=== PATIENT | female | born 1990 | race Caucasian/White ===

== ENCOUNTER 2017-10-21 23:03 | Emergency (ER) | payer BC, OTHER ==
[2017-10-21 23:16] VITALS: O2SAT 98
[2017-10-21] MEDS ORDERED: CORTISPORIN EAR DROPS Solution 1OML OT ONE (23:23)
[2017-10-21] MEDS ORDERED: CLEOCIN 150 MG CAPSULE PO ONE (23:24)
[2017-10-21] MEDS ORDERED: CORTISPORIN EAR DROPS 10 ML SUSPENSION OT ONE (23:29)
[2017-10-21] MEDS ORDERED: CLEOCIN 150 MG CAPSULE ONE (23:29)
--- NOTE | 2017-10-21 23:29 | ERPHSYRPT ---
- History of Present Illness Time Seen by Provider: 10/21/17 23:25 Source: patient Exam Limitations: no limitations Physician History: Pain in left ear for 2-3 days, got worse today, Timing/Duration: gradual onset Severity: moderate ENT Location: ear (L) Prearrival Treatment: no prearrival treatment Associated Symptoms: ear pain (L) Allergies/Adverse Reactions: Sulfa (Sulfonamide Antibiotics) [Sulfa(Sulfonamide Antibiotics)] Allergy (Mild, Verified 04/11/15 02:06) Hives fenofibrate nanocrystallized [From Tricor] Allergy (Verified 04/11/15 02:06) fenofibrate,micronized [From Tricor] Allergy (Verified 04/11/15 02:06) Home Medications: No Reportable Medications [No Reported Medications] 10/21/17 [History] Hx Tetanus, Diphtheria Vaccination/Date Given: Yes (1-2 years ago) Hx Influenza Vaccination/Date Given: No Hx Pneumococcal Vaccination/Date Given: No - Review of Systems Constitutional: No Symptoms Eyes: No Symptoms Ears, Nose, & Throat: Ear Pain, Ear Discharge, Hearing Changes Respiratory: No Symptoms Cardiac: No Symptoms Abdominal/Gastrointestinal: No Symptoms Genitourinary Symptoms: No Symptoms Musculoskeletal: No Symptoms - Past Medical History Pertinent Past Medical History: Yes Neurological History: Migraines ENT History: No Pertinent History Cardiac History: High Cholesterol Respiratory History: No Pertinent History Endocrine Medical History: No Pertinent History Musculoskeletal History: No Pertinent History GI Medical History: GERD History: No Pertinent History Psycho-Social History: Anxiety, Bipolar, Depression, Panic Disorder Female Reproductive Disorders: No Pertinent History Other Medical History: PT STATES THAT HER TRIGLYCERIDES ARE HIGH. PT CANNOT RECALL MEDICATION SHE IS TAKING FOR THAT - Past Surgical History Past Surgical History: Yes Neuro Surgical History: No Pertinent History Cardiac: No Pertinent History Respiratory: No Pertinent History Gastrointestinal: No Pertinent History Genitourinary: No Pertinent History Musculoskeletal: Other Female Surgical History: Section, Tubal Ligation Other Surgical History: TONSILS. WISDOM TEETH. 2 CARPAL TUNNEL SURGERIES - Social History Smoking Status: Current every day smoker How long have you smoked: 4 Exposure to second hand smoke: Yes Drug Use: none Patient Lives Alone: No - Nursing Vital Signs Nursing Vital Signs: Initial Vital Signs Temperature 98 F 10/21/17 23:15 Pulse Rate 87 10/21/17 23:15 Respiratory Rate 18 10/21/17 23:15 Blood Pressure 137/71 10/21/17 23:15 O2 Sat by Pulse Oximetry 98 10/21/17 23:15 Pain Scale Pain Intensity 9 - Physical Exam General Appearance: no apparent distress Eye Exam: bilateral eye: normal inspection, PERRL, EOMI Ear Exam: bilateral ear: auricle normal, TM red, TM bulging Nasal Exam: normal inspection Throat Exam: normal Neck Exam: normal inspection SpO2: 98 Oxygen Delivery: Room Air - Course Nursing assessment & vital signs reviewed: Yes Ordered Tests: Medication Summary Generic Name Dose Route Start Last Admin Trade Name Femi PRN Reason Stop Dose Admin Clindamycin HCl 300 mg 10/21/17 23:24 Cleocin 150 Mg Capsule PO 10/21/17 23:25 STAT ONE Neomycin/Polymyxin/Hydrocortisone 10 ml 10/21/17 23:23 Cortisporin Ear Drops Solution 1oml OT 10/21/17 23:24 STAT ONE - Progress Progress: unchanged, pain not gone completely Counseled pt/family regarding: diagnosis, need for follow-up - Departure Time of Disposition: 23:28 Departure Disposition: Home Clinical Impression: Otitis media due to Streptococcus pneumoniae Condition: Stable Critical Care Time: No Referrals: KARLI SPENCER NP [Primary Care Provider] - Instructions: Ear Pain, Otitis Media (Middle Ear Infection) Additional Instructions: EARACHE 1. If antibiotics are prescribed, take them as directed until gone. 2. Decongestants may be useful. 3. Avoid inserting objects into the ear, such as Q-tips. 4. Acetaminophen or Ibuprofen as directed may help reduce any temperature and help with any associated pain. 5. Contact your child's family physician if there is no improvement in the child's condition within 48 hours. Please follow the instructions given to you. Please take your medication as prescribed if given. If symptoms recur or get worse, come back to the emergency room if you cannot reach your primary care physician, or call your primary care physician for an appointment. Again if your symptoms get worse, come back to the emergency room. Thanks for visiting emergency room, and let us take care of you. Prescriptions: Clindamycin HCl 300 mg PO QID #30 capsule
[2017-10-22] MEDS ORDERED: TORAdol 30 mg Injection IM ONE
[2017-10-22] MEDS ORDERED: TORAdol 30 mg Injection ONE (00:03)
[2017-10-22] MEDS ORDERED: CLEOCIN 150 MG CAPSULE ONE (00:31)
[2017-10-22 00:53] VITALS: BP 118/73; PULSE 67
[2017-10-22] MEDS ORDERED: CLEOCIN 150 MG CAPSULE PO SCH (10:00)
== END 2017-10-22 00:52 | disposition home or self-care (01) ==
LOC: ED 23:03
DX: H66.90 Otitis media, unspecified, unspecified ear (principal); J13 Pneumonia due to Streptococcus pneumoniae
CPT/HCPCS: 96372; 99284; J1885; A9270-GY

== ENCOUNTER 2023-09-06 21:18 | Emergency (ER) | payer SELFPAY ==
[2023-09-06 21:38] VITALS: RESP 18; TEMP 98.2; O2SAT 98
[2023-09-06 21:59] LABS: Absolute Neutrophil Ct (ANC) 2.42 x10^3/uL (1.4-6.9); BASOPHIL % 0.8 % (0.0-0.4); Basophil (Absolute #) 0.04 x10^3/uL (0-0.4); Eosinophil % 4.9 % (0.00-5.0); Eosinophil (Absolute #) 0.24 x10^3/uL (0-0.5); Hematocrit 39.4 % (35-47); Hemoglobin 12.5 g/dL (12.0-16.0); IMMATURE GRAN # 0.01 x10^3u/L (0.00-0.03); IMMATURE GRAN % 0.2 % (0.00-0.4); Lymphocyte (Absolute #) 1.91 x10^3/uL (1.0-4.6); Lymphocytes % 38.9 % (24.0-44.0); Mean Cell Volume 81.4 fL (78-100); Mean Corpuscular Hemoglobin 25.8 pg (26-32); Mean Corpuscular Hgb Concent. 31.7 g/dL (32-36); Mean Platelet Volume 9.9 fL (7.5-11.0); Monocyte (Absolute #) 0.29 x10^3/uL (0.0-1.3); Monocytes % 5.9 % (0.0-12.0); Neutrophil % 49.3 % (36.0-66.0); Platelet Count 190 x10^3/uL (150-450); Red Blood Count 4.84 x10^6/uL (4.1-5.4); Red Cell Distribution Width 15.6 % (11.5-14.0); White Blood Count 4.9 x10^3/uL (4.0-10.5)
[2023-09-06 22:18] LABS: ALBUMIN 4.4 g/dL (3.5-5.0); ANION GAP 14.9 MEQ/L (5-15); BILIRUBIN,TOTAL 0.3 mg/dL (0.2-1.3); Calcium 9.1 mg/dL (8.4-10.2); Creatinine 1 0.59 mg/dL (0.52-1.04); EST GLOMERULAR FILTRATION RATE 123.5 ML/MIN; HCG SERUM TEST NEGATIVE (NEGATIVE); Potassium 3.6 mmol/L (3.5-5.1); Total Protein 7.4 g/dL (6.3-8.2)
--- NOTE | 2023-09-06 22:33 | ERPHSYRPT ---
- History of Present Illness Time Seen by Provider: 09/06/23 21:35 Source: patient Exam Limitations: no limitations Patient Subjective Stated Complaint: pt states that she had a menstral cycle on 08/25 for a few days. pt states that it had stop and started couple days. pt states that tonight she felt a gush and a clump came out. Triage Nursing Assessment: pt ambulated into the er; pt is axo x4; c/o abnormal menstral cycle; pt states 7/10 pain to lower abd; active bowel sounds in all quads; skin PDW; no respiratory distress present; vitals wnl Physician History: Patient presents as a 4 para 3 AB 1 who has had some cramping. She started bleeding on 1027 thinking it was her menses which was a week late. A fter 4 days she stopped and continued no bleeding for 4 days and then started bleeding again and then subsequently stopped again and today a large clump of something fell out. She is complaining of some cramping her bleeding has slowed down. She has seen While he apparently but has not yet had an ultrasound. Allergies/Adverse Reactions: Sulfa (Sulfonamide Antibiotics) [Sulfa(Sulfonamide Antibiotics)] Allergy (Mild, Verified 09/06/23 21:26) Hives Cephalosporins Allergy (Verified 09/06/23 21:26) fenofibrate nanocrystallized [From Tricor] Allergy (Verified 09/06/23 21:26) fenofibrate,micronized [From Tricor] Allergy (Verified 09/06/23 21:26) Penicillins Allergy (Verified 09/06/23 21:26) Home Medications: No Reportable Medications [No Reported Medications] 10/21/17 [History] Hx Tetanus, Diphtheria Vaccination/Date Given: Yes Hx Influenza Vaccination/Date Given: No Hx Pneumococcal Vaccination/Date Given: No Travel Risk - International Travel Have you traveled outside of the country in past 3 weeks: No - Coronavirus Screening Are you exhibiting any of the following symptoms?: No Close contact with a COVID-19 positive Pt in past 14-21 Days: No - Vaccine Status Have you recieved a Covid-19 vaccination: No - Review of Systems Constitutional: No Fever, No Chills Eyes: No Symptoms Ears, Nose, & Throat: No Symptoms Respiratory: No Cough, No Dyspnea Cardiac: No Chest Pain, No Edema, No Syncope Abdominal/Gastrointestinal: No Abdominal Pain, No Nausea, No Vomiting, No Diarrhea Genitourinary Symptoms: Vaginal Bleeding, Other (Pelvic pain), No Dysuria Musculoskeletal: No Back Pain, No Neck Pain Skin: No Rash Neurological: No Dizziness, No Focal Weakness, No Sensory Changes Psychological: No Symptoms Endocrine: No Symptoms All Other Systems: Reviewed and Negative - Past Medical History Pertinent Past Medical History: Yes Neurological History: Migraines ENT History: No Pertinent History Cardiac History: No Pertinent History Respiratory History: Asthma Endocrine Medical History: No Pertinent History Musculoskeletal History: No Pertinent History GI Medical History: GERD History: No Pertinent History Psycho-Social History: Anxiety, Bipolar, Depression, Panic Disorder Female Reproductive Disorders: No Pertinent History Other Medical History: PT STATES THAT HER TRIGLYCERIDES ARE HIGH. PT CANNOT RECALL MEDICATION SHE IS TAKING FOR THAT - Past Surgical History Past Surgical History: Yes Neuro Surgical History: No Pertinent History Cardiac: No Pertinent History Respiratory: No Pertinent History Gastrointestinal: No Pertinent History Genitourinary: No Pertinent History Musculoskeletal: Other Female Surgical History: Section, Tubal Ligation Other Surgical History: TONSILS. WISDOM TEETH. 2 CARPAL TUNNEL SURGERIES - Social History Smoking Status: Current every day smoker How long have you smoked: 4 Exposure to second hand smoke: No Drug Use: none Patient Lives Alone: No - Female History Hx Now: No (unknown) - Nursing Vital Signs Nursing Vital Signs: Initial Vital Signs Temperature 98.2 F 09/06/23 21:28 Pulse Rate 86 09/06/23 21:28 Respiratory Rate 18 09/06/23 21:28 Blood Pressure 145/87 09/06/23 21:28 O2 Sat by Pulse Oximetry 98 09/06/23 21:28 Pain Scale Pain Intensity 7 - Physical Exam General Appearance: mild distress, alert Eye Exam: PERRL/EOMI, eyes nml inspection Ears, Nose, Throat Exam: normal ENT inspection, TMs normal, pharynx normal, moist mucous membranes Neck Exam: normal inspection, non-tender, supple, full range of motion Respiratory Exam: normal breath sounds, lungs clear, No respiratory distress Cardiovascular Exam: regular rate/rhythm, normal heart sounds, normal peripheral pulses Gastrointestinal/Abdomen Exam: soft, No tenderness, No mass Pelvic Exam: normal external exam, adnexal mass (Fullness in the left adnexa), vaginal bleeding, uterine tenderness Back Exam: normal inspection, normal range of motion, No CVA tenderness, No vertebral tenderness Extremity Exam: normal inspection, normal range of motion, pelvis stable Neurologic Exam: alert, oriented x 3, cooperative, 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 as tested, normal mood/affect, sensation nml, No motor deficits Skin Exam: normal color, warm, dry Lymphatic Exam: No adenopathy SpO2: 98 - Course Nursing assessment & vital signs reviewed: Yes Ordered Tests: Active Orders 24 hr Category Date Time Status CBC W DIFF Stat Lab 09/06/23 22:00 Completed CMP Stat Lab 09/06/23 22:00 Completed HCG QUALITATIVE, SERUM Stat Lab 09/06/23 22:00 Completed UA W/RFX UR CULTURE Stat Lab 09/06/23 22:10 Ordered Lab/Rad Data: Laboratory Result Diagrams 09/06/23 22:00 09/06/23 22:00 Laboratory Results 09/06/23 09/06/23 09/06/23 Range/Units 22:00 22:00 22:00 WBC 4.9 (4.0-10.5) x10^3/uL RBC 4.84 (4.1-5.4) x10^6/uL Hgb 12.5 (12.0-16.0) g/dL Hct 39.4 (35-47) % MCV 81.4 (78-100) fL MCH 25.8 L (26-32) pg MCHC 31.7 L (32-36) g/dL RDW 15.6 H (11.5-14.0) % Plt Count 190 (150-450) x10^3/uL MPV 9.9 (7.5-11.0) fL Gran % 49.3 (36.0-66.0) % Immature Gran % (Auto) 0.2 (0.00-0.4) % Nucleat RBC Rel Count 0.0 (0.00-0.1) % Eos # (Auto) 0.24 (0-0.5) x10^3/uL Immature Gran # (Auto) 0.01 (0.00-0.03) x10^3u/L Absolute Lymphs (auto) 1.91 (1.0-4.6) x10^3/uL Absolute Monos (auto) 0.29 (0.0-1.3) x10^3/uL Absolute Nucleated RBC 0.00 (0.00-0.01) x10^3u/L Lymphocytes % 38.9 (24.0-44.0) % Monocytes % 5.9 (0.0-12.0) % Eosinophils % 4.9 (0.00-5.0) % Basophils % 0.8 (0.0-0.4) % Absolute Granulocytes 2.42 (1.4-6.9) x10^3/uL Basophils # 0.04 (0-0.4) x10^3/uL Sodium 137 (137-145) mmol/L Potassium 3.6 (3.5-5.1) mmol/L Chloride 106 (98-107) mmol/L Carbon Dioxide 21 L (22-30) mmol/L Anion Gap 14.9 (5-15) MEQ/L BUN 12 (7-17) mg/dL Creatinine 0.59 (0.52-1.04) mg/dL Estimated GFR 123.5 ML/MIN Glucose 137 H (74-106) mg/dL Calcium 9.1 (8.4-10.2) mg/dL Total Bilirubin 0.30 (0.2-1.3) mg/dL AST 41 H (14-36) U/L ALT 46 H (0-35) U/L Alkaline Phosphatase 75 (38-126) U/L Serum Total Protein 7.4 (6.3-8.2) g/dL Albumin 4.4 (3.5-5.0) g/dL Serum HCG, Qual NEGATIVE (NEGATIVE) - Progress Progress: unchanged Air Movement: good Blood Culture(s) Obtained: No Antibiotics given: No - Departure Departure Disposition: Home Clinical Impression: Spontaneous miscarriage Condition: Stable Critical Care Time: No Referrals: DOCTOR,NO FAMILY [Primary Care Provider] - Follow up/PCP as directed Instructions: Menstrual Cramps (DC) Additional Instructions: Patient was instructed to return at 9 AM for a pelvic ultrasound and the results will be sent to
[2023-09-06] MEDS ORDERED: NORCO 5/325 MG PO ONE (22:36)
[2023-09-06] MEDS ORDERED: NORCO 5/325 MG ONE (22:37)
[2023-09-06 22:41] VITALS: BP 127/91; PULSE 77
== END 2023-09-06 22:44 | disposition home or self-care (01) ==
LOC: ED 21:18
DX: O03.9 Complete or unspecified spontaneous abortion without complication (principal); Z28.310 Unvaccinated for COVID-19; Z72.0 Tobacco use
CPT/HCPCS: 36415; 80053; 84703; 85025; 99282; A9270-GY

== ENCOUNTER 2023-11-23 21:00 | Emergency (ER) | payer MEDICAID ==
[2023-11-23] MEDS ORDERED: BENADRYL 50 MG/ML IV ONE (21:07)
[2023-11-23] MEDS ORDERED: Sodium Chloride 0.9% 1000 ML 1,000 ML IV STA (21:07)
[2023-11-23] MEDS ORDERED: TYLENOL 325 MG PO ONE (21:07)
[2023-11-23] MEDS ORDERED: TORAdol 30 mg Injection IV ONE (21:07)
[2023-11-23 21:15] VITALS: TEMP 97.5
--- NOTE | 2023-11-23 21:18 | ERPHSYRPT ---
- History of Present Illness Time Seen by Provider: 11/23/23 21:12 Source: patient Physician History: The patient is a 33-year-old who has a long history of migraine headaches. She lost her insurance is unable to get her migraine injections. She has had a headache typical for migraine for several days. She is taking Excedrin Migraine. She is taken caffeine. Nothing seemed to help. She states she is getting over the flu as well. Allergies/Adverse Reactions: Sulfa (Sulfonamide Antibiotics) [Sulfa(Sulfonamide Antibiotics)] Allergy (Mild, Verified 11/23/23 21:05) Hives Cephalosporins Allergy (Verified 11/23/23 21:05) fenofibrate nanocrystallized [From Tricor] Allergy (Verified 11/23/23 21:05) fenofibrate,micronized [From Tricor] Allergy (Verified 11/23/23 21:05) Penicillins Allergy (Verified 11/23/23 21:05) Hx Tetanus, Diphtheria Vaccination/Date Given: Yes Hx Influenza Vaccination/Date Given: No Hx Pneumococcal Vaccination/Date Given: No Travel Risk - Vaccine Status Have you recieved a Covid-19 vaccination: No - Review of Systems Constitutional: No Fever, No Chills Eyes: No Symptoms Ears, Nose, & Throat: No Symptoms Respiratory: No Cough, No Dyspnea Cardiac: No Chest Pain, No Edema, No Syncope Abdominal/Gastrointestinal: Nausea, No Abdominal Pain, No Vomiting, No Diarrhea Genitourinary Symptoms: No Dysuria Musculoskeletal: No Back Pain, No Neck Pain Skin: No Rash Neurological: Headache, No Dizziness, No Focal Weakness, No Sensory Changes Psychological: No Symptoms Endocrine: No Symptoms All Other Systems: Reviewed and Negative - Past Medical History Pertinent Past Medical History: Yes Neurological History: Migraines ENT History: No Pertinent History Cardiac History: No Pertinent History Respiratory History: Asthma Endocrine Medical History: No Pertinent History Musculoskeletal History: No Pertinent History GI Medical History: GERD History: No Pertinent History Psycho-Social History: Anxiety, Bipolar, Depression, Panic Disorder Female Reproductive Disorders: No Pertinent History Other Medical History: PT STATES THAT HER TRIGLYCERIDES ARE HIGH. PT CANNOT RECALL MEDICATION SHE IS TAKING FOR THAT - Past Surgical History Past Surgical History: Yes Neuro Surgical History: No Pertinent History Cardiac: No Pertinent History Respiratory: No Pertinent History Gastrointestinal: No Pertinent History Genitourinary: No Pertinent History Musculoskeletal: Other Female Surgical History: Section, Tubal Ligation Other Surgical History: TONSILS. WISDOM TEETH. 2 CARPAL TUNNEL SURGERIES - Social History Smoking Status: Current every day smoker How long have you smoked: 4 Exposure to second hand smoke: No Drug Use: none Patient Lives Alone: No - Nursing Vital Signs Nursing Vital Signs: Initial Vital Signs Temperature 97.5 F 11/23/23 21:06 Pulse Rate 69 11/23/23 21:06 Respiratory Rate 18 11/23/23 21:06 Blood Pressure 151/101 11/23/23 21:06 O2 Sat by Pulse Oximetry 97 11/23/23 21:06 Pain Scale Pain Intensity 5 - Physical Exam General Appearance: no apparent distress Eye Exam: PERRL/EOMI Ears, Nose, Throat Exam: normal ENT inspection, moist mucous membranes Neck Exam: normal inspection, supple, full range of motion, No meningismus Respiratory Exam: normal breath sounds, lungs clear Cardiovascular Exam: regular rate/rhythm, normal heart sounds Gastrointestinal/Abdominal Exam: soft, No tenderness, No distention Back Exam: normal inspection, normal range of motion Mental Status Exam: alert, oriented x 3, 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 Exam: normal speech, PERRL, No facial droop Coordination/Gait Exam: normal cerebellar function Motor/Sensory Exam: no motor deficit, no sensory deficit Skin Exam: normal color, warm, dry, No rash SpO2 Interpretation: normal O2 Delivery: Room Air - Course Nursing assessment & vital signs reviewed: Yes Ordered Tests: Active Orders 24 hr Category Date Time Status IV Insertion STAT Care 11/23/23 21:07 Active Medication Summary Discontinued Medications Generic Name Dose Route Start Last Admin Trade Name Femi PRN Reason Stop Dose Admin Acetaminophen 650 mg 11/23/23 21:07 11/23/23 21:26 Acetaminophen 325 Mg Tablet PO 11/23/23 21:08 650 mg STAT ONE Administration Acetaminophen Confirm 11/23/23 21:24 Acetaminophen 325 Mg Tablet Administered 11/23/23 21:25 Dose 650 mg .ROUTE .STK-MED ONE Diphenhydramine HCl 25 mg 11/23/23 21:07 11/23/23 21:27 Diphenhydramine Hcl 50 Mg/Ml Vial IV 11/23/23 21:08 25 mg STAT ONE Administration Diphenhydramine HCl Confirm 11/23/23 21:24 Diphenhydramine Hcl 50 Mg/Ml Vial Administered 11/23/23 21:25 Dose 50 mg .ROUTE .STK-MED ONE Droperidol 1.25 mg 11/23/23 21:07 11/23/23 21:30 Droperidol 5 Mg/2 Ml Vial IV 11/23/23 21:08 1.25 mg STAT ONE Administration Droperidol Confirm 11/23/23 21:24 Droperidol 5 Mg/2 Ml Vial Administered 11/23/23 21:25 Dose 5 mg .ROUTE .STK-MED ONE Sodium Chloride 1,000 mls @ 999 mls/hr 11/23/23 21:07 11/23/23 21:28 Sodium Chloride 0.9% 1000 Ml IV 11/23/23 22:07 999 mls/hr .Q1H1M STA Administration Sodium Chloride Confirm 11/23/23 21:24 Sodium Chloride 0.9% 1000 Ml Administered 11/23/23 21:25 Dose 1,000 mls @ ud .ROUTE .STK-MED ONE Ketorolac Tromethamine 30 mg 11/23/23 21:07 11/23/23 21:28 Ketorolac Tromethamine 30 Mg/Ml Inj IV 11/23/23 21:08 30 mg STAT ONE Administration Ketorolac Tromethamine Confirm 11/23/23 21:24 Ketorolac Tromethamine 30 Mg/Ml Inj Administered 11/23/23 21:25 Dose 30 mg .ROUTE .STK-MED ONE - Progress Progress Note: This patient presents with a headache most consistent with benign headache from either tension type headache vs migraine. No headache red flags. Neurologic exam without evidence of meningismus, AMS, focal neurologic findings so doubt meningitis, encephalitis, stroke. Presentation not consistent with acute intracranial bleed to include SAH (lack of risk factors, headache history). No history of trauma so doubt ICH. Given history and physical temporal arteritis unlikely, as is acute angle closure glaucoma. Doubt carotid artery dissection given no focal neuro deficits, no neck trauma or recent neck strain. Patient with no signs of increased intracranial pressure or weight loss and history and physical suggest more benign headache so less likely mass effect in brain from tumor or abscess or idiopathic intracranial hypertension. Pain was controlled with headache cocktail and patient discharged home with PMD follow up 11/23/23 21:16 11/23/23 22:22 Patient feels better and wants to be discharged - Departure Departure Disposition: Home Clinical Impression: Migraine aura, persistent, intractable, Migraine aura, persistent, intractable, with status migrainosus Condition: Stable Critical Care Time: No Referrals: DOCTOR,NO FAMILY [Primary Care Provider] - Follow up/PCP as directed Instructions: Migraines (DC), Headache, Adult (DC) Additional Instructions: Thank you for choosing our Emergency Department for your healthcare! Please take your medicines prescribed as directed and be assured that you follow up with the physician provided or your PCP in the next 1-2 days to assure you are improving. All medical problems cannot be reasonably diagnosed in your ED visit today. Return for any changes or concerns, including if your condition does not improve or you are unable to obtain follow-up. Some final results, including radiology reports, do not return the same day, but are available on the patient portal or can be obtained through your PCP. Prescriptions: Butalb/Acetaminophen/Caffeine [Bruvrz-Wisfxozi-Tiez 50-325-40] 1 each PO Q6H PRN PRN #15 cap PRN Reason: headache Ibuprofen [Ibu] 600 mg PO Q6HPRN PRN #20 tablet PRN Reason: headache and pain Ondansetron ODT 4 MG [Zofran Odt 4 mg] 4 mg PO Q6H PRN PRN #10 tablet PRN Reason: Vomiting
[2023-11-23] MEDS ORDERED: TYLENOL 325 MG ONE (21:24)
[2023-11-23] MEDS ORDERED: TORAdol 30 mg Injection ONE (21:24)
[2023-11-23] MEDS ORDERED: Sodium Chloride 0.9% 1000 ML 1,000 ML ONE (21:24)
[2023-11-23] MEDS ORDERED: BENADRYL 50 MG/ML ONE (21:24)
[2023-11-23 22:08] VITALS: PULSE 66
[2023-11-23 22:25] VITALS: BP 153/110; RESP 16; O2SAT 98
== END 2023-11-23 22:38 | disposition home or self-care (01) ==
LOC: ED 21:00
DX: G43.511 Persistent migraine aura without cerebral infarction, intractable, with status migrainosus (principal); Z28.310 Unvaccinated for COVID-19; Z72.0 Tobacco use
CPT/HCPCS: 36000; 96360; 96374; 99284; J1200; J1885; A9270-GY

== ENCOUNTER 2025-03-09 07:43 | Emergency (ER) | payer MEDICAID, OTHER ==
[2025-03-09 08:11] VITALS: TEMP 96.5
--- NOTE | 2025-03-09 08:21 | ERPHSYRPT ---
- History of Present Illness Time Seen by Provider: 03/09/25 07:52 Source: patient Exam Limitations: no limitations Patient Subjective Stated Complaint: patient states "lower back pain" Triage Nursing Assessment: patient brought back to er in wheelchair, able to transfer self to bed, alert and oriented, s/s pain present, no skin alterations noted to left lower back, no sob Physician History: Patient is here with low back pain x 5 days. Left lower back. No falls no trauma. Patient does not believe that she is . States that her is "sterile". She has been taking [id number] medication with some mild improvement. No other fever or chills. She states that her mom is coming to help drive her. Patient did drive herself to the ER. Patient has no red flag symptoms for back pain today: No Loss of control of the bowel or bladder. No weakness or numbness in a leg or arm. No foot drop, disturbed gait. No high fever, no IV drug use. No saddle anaesthesia (numbness of the anus, perineum or genitals). No trauma or h/o cancer Allergies/Adverse Reactions: Sulfa (Sulfonamide Antibiotics) [Sulfa(Sulfonamide Antibiotics)] Allergy (Mild, Verified 03/09/25 08:11) Hives Cephalosporins Allergy (Verified 03/09/25 08:11) Egg Derived Allergy (Verified 03/09/25 08:11) fenofibrate nanocrystallized [From Tricor] Allergy (Verified 03/09/25 08:11) fenofibrate,micronized [From Tricor] Allergy (Verified 03/09/25 08:11) Penicillins Allergy (Verified 03/09/25 08:11) Hx Tetanus, Diphtheria Vaccination/Date Given: Yes Hx Influenza Vaccination/Date Given: No Hx Pneumococcal Vaccination/Date Given: Yes Immunizations Up to Date: Yes Travel Risk - International Travel Have you traveled outside of the country in past 3 weeks: No - Emerging Infectious Disease Are you exhibiting symptoms associated with any current EIDs: No - Past Medical History Pertinent Past Medical History: Yes Neurological History: Migraines ENT History: No Pertinent History Cardiac History: No Pertinent History Respiratory History: Asthma Endocrine Medical History: No Pertinent History Musculoskeletal History: No Pertinent History GI Medical History: GERD History: No Pertinent History Psycho-Social History: Anxiety, Bipolar, Depression, Panic Disorder Female Reproductive Disorders: No Pertinent History Other Medical History: PT STATES THAT HER TRIGLYCERIDES ARE HIGH. PT CANNOT RECALL MEDICATION SHE IS TAKING FOR THAT - Past Surgical History Past Surgical History: Yes Neuro Surgical History: No Pertinent History Cardiac: No Pertinent History Respiratory: No Pertinent History Gastrointestinal: No Pertinent History Genitourinary: No Pertinent History Musculoskeletal: Other Female Surgical History: Dilation & Curettage, Section Other Surgical History: TONSILS. WISDOM TEETH. 2 CARPAL TUNNEL SURGERIES - Female History Hx Last Menstrual Period: SPOTTING FOR 3 MONTHS Hx Now: No - Social History Smoking Status: Current every day smoker How long have you smoked: 17 yo Drug Use: none - Social Determinants of Health Will the patient participate in the screening: Declined to provide - Nursing Vital Signs Nursing Vital Signs: Initial Vital Signs Temperature 96.5 F 03/09/25 07:56 Pulse Rate 68 03/09/25 07:56 Respiratory Rate 18 03/09/25 07:56 Blood Pressure 154/98 03/09/25 07:56 O2 Sat by Pulse Oximetry 99 03/09/25 07:56 Pain Scale Pain Intensity 0 - Physical Exam SpO2: 99 Comments: 03/09/25 08:18 Review of Systems Constitutional: Negative for fever. HENT: Negative for congestion. Respiratory: Negative for shortness of breath. Cardiovascular: Negative for chest pain. Gastrointestinal: Negative for abdominal pain. Genitourinary: Negative for dysuria. Musculoskeletal: Back pain Skin: Negative for rash. Neurological: Negative for headaches. Psychiatric/Behavioral: Negative for behavioral problems. All other systems reviewed and are negative. Physical Exam Vitals signs and nursing note reviewed. Constitutional: Appearance: Patient is well-developed. HENT: Head: Normocephalic and atraumatic. Eyes: Conjunctiva/sclera: Conjunctivae normal. Neck: Musculoskeletal: Normal range of motion. Trachea: No tracheal deviation. Cardiovascular: Rate and Rhythm: Normal rate. Heart sounds normal. Pulmonary: Effort: Pulmonary effort is normal. No respiratory distress. Abdominal: Palpations: Abdomen is soft. Musculoskeletal: General: Tenderness over left side lower back. No step-offs no deformities. No direct L-spine tenderness, T-spine tenderness, C-spine tenderness. No obvious deformity, sensation intact, 2+ capillary refill, 2 point tactile discrimination intact. 5 out of 5 strength. Full range of motion with pain. Compartments are soft, nontender. Overlying skin shows no tenting, bruising, ecchymosis. No saddle anesthesia. Skin: General: Skin is warm and dry. Neurological/ Psychiatric: Mental Status: Mental status, behavior, interaction with environment is appropriate for patient's age and condition - Course Nursing assessment & vital signs reviewed: Yes Ordered Tests: Active Orders 24 hr Category Date Time Status IV Insertion STAT Care 03/09/25 08:05 Active ABDOMEN AND PELVIS W/0 CONTRAS [CT] Stat Exams 03/09/25 08:05 Completed CBC W DIFF Stat Lab 03/09/25 08:19 Completed CMP Stat Lab 03/09/25 08:19 Completed HCG QUALITATIVE, URINE Stat Lab 03/09/25 08:05 Completed LIPASE Stat Lab 03/09/25 08:19 Completed UA W/RFX UR CULTURE Stat Lab 03/09/25 08:05 Completed Urine Triage Profile Stat Lab 03/09/25 08:05 Completed Medication Summary Discontinued Medications Generic Name Dose Route Start Last Admin Trade Name Freq PRN Reason Stop Dose Admin Diphenhydramine HCl 25 mg 03/09/25 08:05 03/09/25 08:48 Diphenhydramine Hcl 50 Mg/Ml Vial IV 03/09/25 08:06 25 mg STAT ONE Administration Diphenhydramine HCl Confirm 03/09/25 08:46 Diphenhydramine Hcl 50 Mg/Ml Vial Administered 03/09/25 08:47 Dose 50 mg .ROUTE .STK-MED ONE Droperidol 1.25 mg 03/09/25 08:05 03/09/25 08:59 Droperidol 5 Mg/2 Ml Vial IV 03/09/25 08:06 1.25 mg STAT ONE Administration Droperidol Confirm 03/09/25 08:45 Droperidol 5 Mg/2 Ml Vial Administered 03/09/25 08:46 Dose 5 mg .ROUTE .STK-MED ONE Hydromorphone HCl 1 mg 03/09/25 09:37 03/09/25 09:46 Hydromorphone 1 Mg/1ml Inj IV 03/09/25 09:38 1 mg STAT ONE Administration Hydromorphone HCl Confirm 03/09/25 09:40 Hydromorphone 1 Mg/1ml Inj Administered 03/09/25 09:41 Dose 1 mg .ROUTE .STK-MED ONE Sodium Chloride 1,000 mls @ 999 mls/hr 03/09/25 08:05 03/09/25 10:09 Sodium Chloride 0.9% 1000 Ml IV 03/09/25 09:05 Infused .Q1H1M STA Infusion Sodium Chloride Confirm 03/09/25 08:46 Sodium Chloride 0.9% 1000 Ml Administered 03/09/25 08:47 Dose 1,000 mls @ ud .ROUTE .STK-MED ONE Ketorolac Tromethamine 30 mg 03/09/25 08:05 03/09/25 08:56 Ketorolac Tromethamine 30 Mg/Ml Inj IV 03/09/25 08:06 30 mg STAT ONE Administration Ketorolac Tromethamine Confirm 03/09/25 08:45 Ketorolac Tromethamine 30 Mg/Ml Inj Administered 03/09/25 08:46 Dose 30 mg .ROUTE .STK-MED ONE Ondansetron HCl 4 mg 03/09/25 08:05 03/09/25 08:54 Ondansetron Hcl 4 Mg/2 Ml Vial IV 03/09/25 08:06 4 mg STAT ONE Administration Ondansetron HCl Confirm 03/09/25 08:45 Ondansetron Hcl 4 Mg/2 Ml Vial Administered 03/09/25 08:46 Dose 4 mg .ROUTE .STK-MED ONE Lab/Rad Data: Laboratory Result Diagrams 03/09/25 08:19 03/09/25 08:19 Laboratory Results 03/09/25 03/09/25 03/09/25 Range/Units 08:19 08:19 08:05 WBC 7.1 (3.98-10.04) x10^3/uL RBC 4.85 (3.93-5.22) x10^6/uL Hgb 13.1 (11.2-15.7) g/dL Hct 39.6 (34.1-44.9) % MCV 81.6 (79.4-94.8) fL MCH 27.0 (25.6-32.2) pg MCHC 33.1 (32.2-35.5) g/dL RDW 15.6 H (11.7-14.4) % Plt Count 192 (182-369) x10^3/uL MPV 10.2 (9.4-12.3) fL Gran % 53.2 (34.0-71.1) % Immature Gran % (Auto) 0.3 (0.001-0.429) % Nucleat RBC Rel Count 0.0 (0.00-0.2) % Eos # (Auto) 0.22 (0.04-0.36) x10^3/uL Immature Gran # (Auto) 0.02 (0.001-0.031) x10^3u/L Absolute Lymphs (auto) 2.61 (1.18-3.74) x10^3/uL Absolute Monos (auto) 0.43 (0.24-0.86) x10^3/uL Absolute Nucleated RBC 0.00 (0.00-0.012) x10^3u/L Lymphocytes % 36.7 (19.3-51.7) % Monocytes % 6.0 (4.7-12.5) % Eosinophils % 3.1 (0.7-5.8) % Basophils % 0.7 (0.1-1.2) % Absolute Granulocytes 3.79 (1.56-6.13) x10^3/uL Basophils # 0.05 (0.01-0.08) x10^3/uL Sodium 138 (135-145) mmol/L Potassium 3.8 (3.5-5.1) mmol/L Chloride 106 (98-107) mmol/L Carbon Dioxide 20 L (22-30) mmol/L Anion Gap 14.8 (5-15) MEQ/L BUN 12 (7-17) mg/dL Creatinine 0.69 (0.52-1.04) mg/dL Estimated GFR 118.2 ML/MIN Glucose 94 (74-106) mg/dL Calcium 9.0 (8.4-10.2) mg/dL Total Bilirubin 0.40 (0.2-1.3) mg/dL AST 37 H (14-36) U/L ALT 42 H (0-35) U/L Alkaline Phosphatase 53 (38-126) U/L Serum Total Protein 6.6 (6.3-8.2) g/dL Albumin 4.2 (3.5-5.0) g/dL Lipase 71 (23-300) U/L Urine Color (Yellow) Urine Appearance (Clear) Urine pH (4.6-8.0) Ur Specific [place] (1.005-1.030) Urine Protein (Negative) Urine Glucose (UA) (Negative) mg/dL Urine Ketones (Negative) Urine Blood (Negative) Urine Nitrite (Negative) Urine Bilirubin (Negative) Urine Urobilinogen (0.2) mg/dL Ur Leukocyte Esterase (Negative) U Hyaline Cast (Auto) (0-2) /LPF Urine Microscopic RBC (0-5) /HPF Urine Microscopic WBC (0-5) /HPF Ur Epithelial Cells (None Seen) /HPF Urine Bacteria (None Seen) /HPF Urine Culture Reflexed (NO) Urine HCG, Qual NEGATIVE (NEGATIVE) Urine Opiates Level (NEGATIVE) Ur Methadone (NEGATIVE) Urine Barbiturates (NEGATIVE) Ur Phencyclidine (PCP) (NEGATIVE) Urine Amphetamine (NEGATIVE) U Benzodiazepine Level (NEGATIVE) Urine Cocaine (NEGATIVE) Urine Marijuana (THC) (NEGATIVE) 03/09/25 03/09/25 Range/Units 08:05 08:05 WBC (3.98-10.04) x10^3/uL RBC (3.93-5.22) x10^6/uL Hgb (11.2-15.7) g/dL Hct (34.1-44.9) % MCV (79.4-94.8) fL MCH (25.6-32.2) pg MCHC (32.2-35.5) g/dL RDW (11.7-14.4) % Plt Count (182-369) x10^3/uL MPV (9.4-12.3) fL Gran % (34.0-71.1) % Immature Gran % (Auto) (0.001-0.429) % Nucleat RBC Rel Count (0.00-0.2) % Eos # (Auto) (0.04-0.36) x10^3/uL Immature Gran # (Auto) (0.001-0.031) x10^3u/L Absolute Lymphs (auto) (1.18-3.74) x10^3/uL Absolute Monos (auto) (0.24-0.86) x10^3/uL Absolute Nucleated RBC (0.00-0.012) x10^3u/L Lymphocytes % (19.3-51.7) % Monocytes % (4.7-12.5) % Eosinophils % (0.7-5.8) % Basophils % (0.1-1.2) % Absolute Granulocytes (1.56-6.13) x10^3/uL Basophils # (0.01-0.08) x10^3/uL Sodium (135-145) mmol/L Potassium (3.5-5.1) mmol/L Chloride (98-107) mmol/L Carbon Dioxide (22-30) mmol/L Anion Gap (5-15) MEQ/L BUN (7-17) mg/dL Creatinine (0.52-1.04) mg/dL Estimated GFR ML/MIN Glucose (74-106) mg/dL Calcium (8.4-10.2) mg/dL Total Bilirubin (0.2-1.3) mg/dL AST (14-36) U/L ALT (0-35) U/L Alkaline Phosphatase (38-126) U/L Serum Total Protein (6.3-8.2) g/dL Albumin (3.5-5.0) g/dL Lipase (23-300) U/L Urine Color Yellow (Yellow) Urine Appearance Clear (Clear) Urine pH 5.5 (4.6-8.0) Ur Specific [place] 1.020 (1.005-1.030) Urine Protein Negative (Negative) Urine Glucose (UA) Negative (Negative) mg/dL Urine Ketones Negative (Negative) Urine Blood Negative (Negative) Urine Nitrite Negative (Negative) Urine Bilirubin Negative (Negative) Urine Urobilinogen 0.2 (0.2) mg/dL Ur Leukocyte Esterase Negative (Negative) U Hyaline Cast (Auto) NONE SEEN (0-2) /LPF Urine Microscopic RBC 0-2 (0-5) /HPF Urine Microscopic WBC 0-2 (0-5) /HPF Ur Epithelial Cells None Seen (None Seen) /HPF Urine Bacteria None Seen (None Seen) /HPF Urine Culture Reflexed NO (NO) Urine HCG, Qual (NEGATIVE) Urine Opiates Level NEGATIVE (NEGATIVE) Ur Methadone NEGATIVE (NEGATIVE) Urine Barbiturates NEGATIVE (NEGATIVE) Ur Phencyclidine (PCP) NEGATIVE (NEGATIVE) Urine Amphetamine NEGATIVE (NEGATIVE) U Benzodiazepine Level NEGATIVE (NEGATIVE) Urine Cocaine NEGATIVE (NEGATIVE) Urine Marijuana (THC) NEGATIVE (NEGATIVE) - Progress Progress: improved Progress Note: 03/09/25 08:20 Differential diagnosis includes kidney stone, compression fracture, infection, UTI, triple AAA, kidney stone - basic labs including: CBC, lipase, CMP, UA, UPT - insert IV for symptom management - consider imaging: CT ab/pelvis or U/S Reevaluation Patient feels improved with medication. Labs demonstrate no obvious abnormalities. Patient's screen is negative. No signs of a UTI, no GIUSEPPE. CT scan without contrast demonstrates no obstructing kidney stones. No kidney stones in the ureter or bladder. Patient's test is negative. Patient likely has sciatic back pain. Patient's medical record did indicate that she already has degenerative joint disease in her L-spine and T-spine. Therefore likely has some possible early arthritis as well as back pain. I did discuss all this with the patient. Her pain is well-controlled here with Dilaudid. Will not do any narcotics going home. However we will do Flexeril. I did discuss with the patient that she should absolutely not drive today after getting Dilaudid. She should not drive until tomorrow and only if she is feeling better. I also discussed the same driving precautions with Flexeril. She should absolutely not drive while taking any muscle relaxers. Will also do a steroid Dosepak, oral Toradol going home. I did discuss this with the patient. Her mom is picking her up today. Plan for discharge home at this point in time. Return here sooner for new or changing symptoms. Counseled pt/family regarding: lab results, diagnosis, need for follow-up, rad results Medical Desision Making - Independent Historian Additional History obtained from: Child - External Record(s) Reviewed Records reviewed as a part of evaluation & management: Discharge Summary - Social Determinants of Health Pt's dx & treatment plan are significantly limited by SDOH: financial hardships Limited access to: transportation - Diagnostic Testing Diagnostic test were ordered, analyzed, and reviewed by me: Yes Radiological Interpretation: Reviewed by me - Risk of complications Minimal Risk: Minimal risk of morbidity - Departure Departure Disposition: Home Clinical Impression: Left-sided low back pain with sciatica Condition: Stable Critical Care Time: No Referrals: KARLI SPENCER NP [Primary Care Provider, [facility]] - Follow up/PCP as directed Instructions: Sciatica (DC) Prescriptions: Cyclobenzaprine HCl 10 mg [Flexeril 10 MG] 10 mg PO TID #12 tablet Methylprednisolone Packet [Medrol Dosepack] 4 mg PO UD #30 packet Ketorolac Trometh 10 mg Tab [TORAdol 10 MG TABLET] 10 mg PO DAILY PRN PRN 7 Days #15 tablet PRN Reason: Muscle Spasms
[2025-03-09 08:34] LABS: Absolute Neutrophil Ct (ANC) 3.79 x10^3/uL (1.56-6.13); BASOPHIL % 0.7 % (0.1-1.2); Basophil (Absolute #) 0.05 x10^3/uL (0.01-0.08); Eosinophil % 3.1 % (0.7-5.8); Eosinophil (Absolute #) 0.22 x10^3/uL (0.04-0.36); Hematocrit 39.6 % (34.1-44.9); Hemoglobin 13.1 g/dL (11.2-15.7); IMMATURE GRAN # 0.02 x10^3u/L (0.001-0.031); IMMATURE GRAN % 0.3 % (0.001-0.429); Lymphocyte (Absolute #) 2.61 x10^3/uL (1.18-3.74); Lymphocytes % 36.7 % (19.3-51.7); Mean Cell Volume 81.6 fL (79.4-94.8); Mean Corpuscular Hgb Concent. 33.1 g/dL (32.2-35.5); Mean Platelet Volume 10.2 fL (9.4-12.3); Monocyte (Absolute #) 0.43 x10^3/uL (0.24-0.86); Neutrophil % 53.2 % (34.0-71.1); Platelet Count 192 x10^3/uL (182-369); Red Blood Count 4.85 x10^6/uL (3.93-5.22); Red Cell Distribution Width 15.6 % (11.7-14.4); White Blood Count 7.1 x10^3/uL (3.98-10.04)
[2025-03-09 08:41] LABS: Appearance Clear (Clear); Bacteria None Seen /HPF (None Seen); Bilirubin Negative (Negative); Blood Negative (Negative); Epithelial Cells None Seen /HPF (None Seen); Glucose, Urine Negative (Negative); Hyaline Casts NONE SEEN /LPF (0-2); Ketones Negative (Negative); Leukocyte Esterase Negative (Negative); Nitrite Negative (Negative); Ph 5.5 (4.6-8.0); Protein,Urine Dip Negative (Negative); RBC 0-2 /HPF (0-5); Urobilinogen 0.2 mg/dL (0.2); WBC 0-2 /HPF (0-5)
[2025-03-09] MEDS ORDERED: Inapsine 5 MG/2 ML ONE (08:45)
[2025-03-09] MEDS ORDERED: TORAdol 30 mg Injection ONE (08:45)
[2025-03-09] MEDS ORDERED: Zofran 4 MG/2 ML VIAL ONE (08:45)
[2025-03-09] MEDS ORDERED: BENADRYL 50 MG/ML ONE (08:46)
[2025-03-09] MEDS ORDERED: Sodium Chloride 0.9% 1000 ML 1,000 ML ONE (08:46)
[2025-03-09 08:48] LABS: ALBUMIN 4.2 g/dL (3.5-5.0); ANION GAP 14.8 MEQ/L (5-15); BILIRUBIN,TOTAL 0.4 mg/dL (0.2-1.3); Creatinine 1 0.69 mg/dL (0.52-1.04); EST GLOMERULAR FILTRATION RATE 118.2 ML/MIN; Potassium 3.8 mmol/L (3.5-5.1); Total Protein 6.6 g/dL (6.3-8.2)
[2025-03-09 08:48] LABS: HCG URINE TEST NEGATIVE (NEGATIVE)
[2025-03-09] MEDS: BENADRYL 50 MG/ML IV ONE (08:48)
[2025-03-09] MEDS: Sodium Chloride 0.9% 1000 ML 1,000 ML IV STA (08:50)
[2025-03-09] MEDS: Zofran 4 MG/2 ML VIAL IV ONE (08:54)
[2025-03-09] MEDS: TORAdol 30 mg Injection IV ONE (08:56)
[2025-03-09 08:59] LABS: Amphetamine,Urine NEGATIVE (NEGATIVE); Barbiturate,Urine NEGATIVE (NEGATIVE); Benzodiazepine,Urine NEGATIVE (NEGATIVE); Cocaine,Urine NEGATIVE (NEGATIVE); Methadone,Urine NEGATIVE (NEGATIVE); Opiate,Urine NEGATIVE (NEGATIVE); PCP,Urine NEGATIVE (NEGATIVE); THC,Urine NEGATIVE (NEGATIVE)
[2025-03-09] MEDS: Inapsine 5 MG/2 ML IV ONE (08:59)
[2025-03-09] MEDS ORDERED: Hydromorphone 1 mg/ml Injection ONE (09:40)
[2025-03-09] MEDS: Hydromorphone 1 mg/ml Injection IV ONE (09:46)
--- NOTE | 2025-03-09 10:40 | XRAY ---
Indication: Left flank pain. Multiple contiguous axial images obtained through the abdomen and pelvis without contrast using renal stone protocol. Comparison: April 11, 2015 Lung bases clear. Heart not enlarged. New faint bilateral nephrocalcinosis. Also new 2 focal right renal and 1 left renal punctate calculi. No hydronephrosis, hydroureter, or evidence for obstructive uropathy. Noncontrasted stomach and bowel loops appear nonobstructed with normal appendix. No free fluid/air. Remaining liver, gallbladder, pancreas, spleen, adrenal glands, kidneys, ureters, bladder, uterus, and aorta are unremarkable for noncontrast exam. Osseous structures intact. Impression: New nonobstructing bilateral renal micro-calculi. Remaining CT abdomen/pelvis without contrast exam continues to be negative.
[2025-03-09 11:02] VITALS: BP 107/79; PULSE 56; RESP 18; O2SAT 96
== END 2025-03-09 11:30 | disposition home or self-care (01) ==
LOC: ED 07:43
DX: M54.42 Lumbago with sciatica, left side (principal); Z79.52 Long term (current) use of systemic steroids; Z79.899 Other long term (current) drug therapy; Z72.0 Tobacco use
CPT/HCPCS: 36415; 74176; 80053; 80307; 81001; 81025; 83690; 85025; 96361; 96374; 96375; 99284; J1171; J1200; J1790; J1885; J2405